=== PATIENT | female | born 1985 | race Caucasian/White ===

== ENCOUNTER 2023-12-05 15:27 | Emergency (ER) | payer OTHER, SELFPAY ==
[2023-12-05 15:34] VITALS: BP 157/95; PULSE 68; TEMP 36.9; O2SAT 99; BMI 28.4
--- NOTE | 2023-12-05 16:41 | ED_ITS ---
Documented by User: LINDA Tong 12/05/23 19:11 HPI HPI - Back Pain/Injury General Chief Complaint: Back Pain/Injury Stated Complaint: Back Pain Time Seen by Provider: 12/05/23 16:24 Source: patient Mode of arrival: walk-in Limitations: no limitations History of Present Illness HPI Narrative: 38-year-old female presents to the emergency department with complaint of upper back pain. Onset this past Sunday. Has been fairly constant. Patient states somewhat worsening and has not been able to sleep because of it. Has had some intermittent right arm weakness, none now. Has had neck, upper back problems in the past. History of degenerative disc disease. Denies any specific injury, sensory changes, paresthesias. Quality:?as above Severity:?Moderate Timing:?as above, constant, waxing and waning Context: Normal setting and activity? Modifying factors:?Pain worse with palpation Associated symptoms: As above Related Data Previous Rx's ?Medication ?Instructions ?Recorded cyclobenzaprine 5 mg tablet 5 - 10 mg (1 - 2 x 5 mg) PO .every 12/05/23 4-6 hours PRN muscle spasm #14 tabs oxycodone-acetaminophen 5 mg-325 1 tab PO Q8H PRN pain 3 days #8 12/05/23 mg tablet (Percocet) tabs prednisone 20 mg tablet 40 mg (2 x 20 mg) PO DAILY 5 days 12/05/23 #10 tabs Allergies Allergy/AdvReac Type Severity Reaction Status Date / Time No Known Drug Allergies Allergy Verified 12/05/23 15:33 Opioid HPI Opioid Management Most Recent Opioid Data: Last Pain Scale 6 12/05/23 19:07 Last ED Pain Assessment 12/05/23 19:07 Last MAR Pain Assessment 12/05/23 18:07 Review of Systems ROS Narrative CONST: Denies activity change, weakness MS: +back pain.? CHEST: Denies chest pain RESP: Denies dyspnea SKIN: Denies color change, wound NEURO: Denies numbness, paresthesias Exam Narrative Exam Narrative: Vital signs reviewed Nurses notes noted CONST: Nontoxic, well appearing, well nourished, in no distress.? No diaphoresis.?? HENT: normocephalic, atraumatic, moist mucous membrane, no abnormalities of the nose noted, hearing normal EYES: normal appearing conjunctiva, no apparent discharge bilat NECK: normal appearance CV: normal rate, regular rhythm, no murmur RESP: normal effort, speaking in complete sentences. Lung sounds clear and equal bilat.? No wheezes, rales, rhonchi MS: Patient complains of tenderness to the trapezius muscles on either side of her upper thoracic spine. She states some mild spinous process tenderness. No discoloration, crepitus, swelling, erythema. 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 Denies any tenderness over the cervical spinous process, paraspinal musculature, remainder of thoracic spine, LS spine. Patient displays steady gait. SKIN: no pallor NEURO: A&Ox 3, no focal findings. Motor and sensory intact. PSYCH: normal mood, affect Constitutional Vital Signs, click to edit/add: Last Vital Signs Temp 98.5 F 12/05/23 15:34 Pulse 57 L 12/05/23 19:07 Resp 16 12/05/23 19:07 BP 112/86 12/05/23 19:07 Pulse Ox 98 12/05/23 19:07 O2 Del Method Room Air 12/05/23 19:07 Course Reevaluation(s) Reevaluation #1: On reevaluation, patient states no change in pain after treatment. Will order some imaging, additional pain medicines Reevaluation #2: With patient and significant other results, plan, and disposition. They are agreeable with plan Vital Signs Vital signs: Vital Signs Temperature 98.5 F 12/05/23 15:34 Pulse Rate 68 12/05/23 15:34 Respiratory Rate 20 12/05/23 15:34 Blood Pressure 157/95 H 12/05/23 15:34 Pulse Oximetry 99 12/05/23 15:34 Oxygen Delivery Method Room Air 12/05/23 15:34 Temperature 98.5 F 12/05/23 15:34 Pulse Rate 57 L 12/05/23 19:07 Respiratory Rate 16 12/05/23 19:07 Blood Pressure 112/86 12/05/23 19:07 Pulse Oximetry 98 12/05/23 19:07 Oxygen Delivery Method Room Air 12/05/23 19:07 MDM - Back Pain/Injury MDM Narrative Medical decision making narrative: This is a pleasant 38-year-old female who presents to the emergency department complaint of upper back pain. Onset this past Sunday. Notes onset during the course of the day. History of degenerative disc disease. Has had some symptoms in her right arm, none at present. On arrival, afebrile, vital signs are stable. On exam, nontoxic, well-appearing patient in no distress. She has tenderness to the musculature of the trapezius on either side of her thoracic spine. She has some mild tenderness over the spinous process. She denies any appreciable tenderness of the spinous process, paraspinal musculature of the cervical spine. No tenderness of the mid, distal thoracic spine, lumbar sacral spines. She displays steady gait. 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 No sensory deficits present. Initially treated with pain medications and when no change in pain occurred, concern raised for something structural within the spine and CT was ordered. CT imaging, per radiologist reveals no acute process. Patient was given additional medications. Likely upper back pain, consider cervical plexus discomfort, musculoskeletal strain. Cord compression less likely based on stable neurologic evaluation. No deficits present Less likely fracture, dislocation based on imaging Disposition ? The patient was discharged. Plan: Patient will be discharged to home. Condition at time of disposition: stable She was given prescription for limited supply of Percocet, Flexeril, and prednisone. Advised to follow up with spine provider. Name and number placed on discharge paperwork. Advised to return for any worsening and/or development of new, concerning signs or symptoms PLEASE NOTE: Portions of the medical record may have been produced using electronic farm tractor operator and may contain errors with respect to translation of words which may not have been identified prior to finalization of the chart. Medical Records Attestation: I reviewed the patient's medical records. Lab Data Attestation: I reviewed the patient's lab results. Labs: Lab Results 12/05/23 Range/Units 16:20 Urine Color Yellow (YELLOW) Urine Clarity Clear (CLEAR) Urine pH 6.0 (5.0-9.0) Ur Specific [place] 1.025 (1.005-1.025) Urine Protein Negative (NEG/TRACE) mg/dL Urine Glucose (UA) Negative (NEGATIVE) mg/dL Urine Ketones Negative (NEGATIVE) mg/dL Urine Occult Blood Trace-i (NEGATIVE) Urine Nitrite Negative (NEGATIVE) Urine Bilirubin Negative (NEGATIVE) Urine Urobilinogen 0.2 (0.2-1.0) EU/dL Ur Leukocyte Esterase Negative (NEGATIVE) Urine RBC 0-2 (0-2) #/HPF Urine WBC None seen (NONE SEEN) #/HPF Ur Squamous Epith Cells Rare (NONE/RARE) #/LPF Urine Crystals None seen (None Seen) #/HPF Urine Bacteria Trace A (NONE SEEN) #/HPF Urine Casts None seen (NONE SEEN) #/LPF Urine Mucus None seen (NONE SEEN) Urine HCG, Qual Negative (NEGATIVE) Imaging Data CT Spine: Radiologist's impression: ITS Impressions Thoracic Spine CT 12/05/23 18:05 IMPRESSION: No acute abnormalities in the thoracic spine. Electronically authenticated by: KEITH PEDROZA Date: 12/05/2023 18:27 Discharge Plan Discharge Stand Alone Forms: Portal Instructions Chief Complaint: Back Pain/Injury Clinical Impression: Acute upper back pain Thoracic back pain Qualifiers: Chronicity: acute Back pain laterality: bilateral Qualified Code(s): M54.6 - Pain in thoracic spine Patient Disposition: Home, Self-Care Time of Disposition Decision: 19:01 Condition: Good Mode of Transportation: Private Vehicle Prescriptions / Home Meds: New oxycodone-acetaminophen [Percocet] 5-325 mg tablet 1 tab PO Q8H PRN (Reason: pain) 3 Days Qty: 8 0RF prednisone 20 mg tablet 40 mg PO DAILY 5 Days Qty: 10 0RF cyclobenzaprine 5 mg tablet 5 - 10 mg PO .every 4-6 hours PRN (Reason: muscle spasm) Qty: 14 0RF Print Language: [place] Instructions: Thoracic Pain (ED) Referrals: ALEXEY PRINCE [Physician] - 1 week Discharge Date/Time: 12/05/23 19:18 Documented by User: Oleksandr Franz MD 12/05/23 21:40 HPI HPI - Back Pain/Injury General Chief Complaint: Back Pain/Injury Stated Complaint: Back Pain Time Seen by Provider: 12/05/23 16:24 Related Data Previous Rx's ?Medication ?Instructions ?Recorded cyclobenzaprine 5 mg tablet 5 - 10 mg (1 - 2 x 5 mg) PO .every 12/05/23 4-6 hours PRN muscle spasm #14 tabs oxycodone-acetaminophen 5 mg-325 1 tab PO Q8H PRN pain 3 days #8 12/05/23 mg tablet (Percocet) tabs prednisone 20 mg tablet 40 mg (2 x 20 mg) PO DAILY 5 days 12/05/23 #10 tabs Allergies Allergy/AdvReac Type Severity Reaction Status Date / Time No Known Drug Allergies Allergy Verified 12/05/23 15:33 Opioid HPI Opioid Management Most Recent Opioid Data: Last Pain Scale 6 12/05/23 19:07 Last ED Pain Assessment 12/05/23 19:07 Last MAR Pain Assessment 12/05/23 18:07 Exam Constitutional Vital Signs, click to edit/add: Last Vital Signs Temp 98.5 F 12/05/23 15:34 Pulse 57 L 12/05/23 19:07 Resp 16 12/05/23 19:07 BP 112/86 12/05/23 19:07 Pulse Ox 98 12/05/23 19:07 O2 Del Method Room Air 12/05/23 19:07 Course Vital Signs Vital signs: Vital Signs Temperature 98.5 F 12/05/23 15:34 Pulse Rate 68 12/05/23 15:34 Respiratory Rate 20 12/05/23 15:34 Blood Pressure 157/95 H 12/05/23 15:34 Pulse Oximetry 99 12/05/23 15:34 Oxygen Delivery Method Room Air 12/05/23 15:34 Temperature 98.5 F 12/05/23 15:34 Pulse Rate 57 L 12/05/23 19:07 Respiratory Rate 16 12/05/23 19:07 Blood Pressure 112/86 12/05/23 19:07 Pulse Oximetry 98 12/05/23 19:07 Oxygen Delivery Method Room Air 12/05/23 19:07 MDM - Back Pain/Injury MDM Narrative Medical decision making narrative: This is a pleasant 38-year-old female who presents to the emergency department complaint of upper back pain. Onset this past Sunday. Notes onset during the course of the day. History of degenerative disc disease. Has had some symptoms in her right arm, none at present. On arrival, afebrile, vital signs are stable. On exam, nontoxic, well-appearing patient in no distress. She has tenderness to the musculature of the trapezius on either side of her thoracic spine. She has some mild tenderness over the spinous process. She denies any appreciable tenderness of the spinous process, paraspinal musculature of the cervical spine. No tenderness of the mid, distal thoracic spine, lumbar sacral spines. She displays steady gait. 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 No sensory deficits present. Initially treated with pain medications and when no change in pain occurred, concern raised for something structural within the spine and CT was ordered. CT imaging, per radiologist reveals no acute process. Patient was given additional medications. Likely upper back pain, consider cervical plexus discomfort, musculoskeletal strain. Cord compression less likely based on stable neurologic evaluation. No deficits present Less likely fracture, dislocation based on imaging Disposition ? The patient was discharged. Plan: Patient will be discharged to home. Condition at time of disposition: stable She was given prescription for limited supply of Percocet, Flexeril, and prednisone. Advised to follow up with spine provider. Name and number placed on discharge paperwork. Advised to return for any worsening and/or development of new, concerning signs or symptoms PLEASE NOTE: Portions of the medical record may have been produced using electronic farm tractor operator and may contain errors with respect to translation of words which may not have been identified prior to finalization of the chart. I, Dr Franz, have reviewed the above progress note and course of action in the ER; agree with the above. I have gone over history and physical, and discussed disposition and treatment plan with the patient. Lab Data Labs: Lab Results 12/05/23 Range/Units 16:20 Urine Color Yellow (YELLOW) Urine Clarity Clear (CLEAR) Urine pH 6.0 (5.0-9.0) Ur Specific [place] 1.025 (1.005-1.025) Urine Protein Negative (NEG/TRACE) mg/dL Urine Glucose (UA) Negative (NEGATIVE) mg/dL Urine Ketones Negative (NEGATIVE) mg/dL Urine Occult Blood Trace-i (NEGATIVE) Urine Nitrite Negative (NEGATIVE) Urine Bilirubin Negative (NEGATIVE) Urine Urobilinogen 0.2 (0.2-1.0) EU/dL Ur Leukocyte Esterase Negative (NEGATIVE) Urine RBC 0-2 (0-2) #/HPF Urine WBC None seen (NONE SEEN) #/HPF Ur Squamous Epith Cells Rare (NONE/RARE) #/LPF Urine Crystals None seen (None Seen) #/HPF Urine Bacteria Trace A (NONE SEEN) #/HPF Urine Casts None seen (NONE SEEN) #/LPF Urine Mucus None seen (NONE SEEN) Urine HCG, Qual Negative (NEGATIVE) Imaging Data CT Spine: Radiologist's impression: ITS Impressions Thoracic Spine CT 12/05/23 18:05
[2023-12-05] MEDS: TIZANIDINE HCL 4 MG TABLET PO (16:53)
[2023-12-05] MEDS: LIDOCAINE 5% PATCH 1 PATCH TOPICAL (16:53)
[2023-12-05] MEDS: TRIAMCINOLONE ACETONIDE 40 MG/ML VIAL IM (16:55)
[2023-12-05 16:58] LABS: Bilirubin Urine NEGATIVE (NEGATIVE); Blood Urine TRACE-I (NEGATIVE); Clarity Urine CLEAR (CLEAR); Color Urine YELLOW (YELLOW); Glucose Urine UA NEGATIVE (NEGATIVE); Ketones Urine NEGATIVE (NEGATIVE); Leukocyte Esterase Urine NEGATIVE (NEGATIVE); Nitrite Urine NEGATIVE (NEGATIVE); Protein Urine NEGATIVE (NEG/TRACE); Specific Gravity Urine 1.025 (1.005-1.025); Urobilinogen Urine 0.2 EU/dL (0.2-1.0)
[2023-12-05 17:00] LABS: HCG Qualitative Urine* NEGATIVE (NEGATIVE)
[2023-12-05 17:06] LABS: Bacteria Urine TRACE #/HPF (NONE SEEN); Cast Seen? NONE SEEN #/LPF (NONE SEEN); Crystals Seen? None Seen #/HPF (None Seen); Mucus Urine NONE SEEN (NONE SEEN); RBC Urine 0-2 #/HPF (0-2); Squamous Epithelial Cell Urine RARE #/LPF (NONE/RARE); WBC Urine NONE SEEN #/HPF (NONE SEEN)
--- NOTE | 2023-12-05 18:05 | CT_ITS ---
The [address] [address] Patient Name: HAILEY WILLIAM MRN: [id number] date: 1985 Sex: F Assigned Patient Location: ER Current Patient Location: ER Accession/Order Number: [id number] Exam Date: 12/05/2023 18:02 Report Date: 12/05/2023 18:27 At the request of: LIZBETH PARKS Procedure: CT thoracic spine wo con EXAM: CT scan of the thoracic spine with IV contrast. Dose reduction technique used: Automated exposure control and/or adjustment of the mA and/or kV according to patient size and/or use of iterative reconstruction technique. REASON FOR EXAM: EVALUATION OF C6-T5. Upper back pain COMPARISON: None FINDINGS: No fractures, dislocations or acute malalignment of the thoracic spine. Degenerative changes in the thoracic line without substantial spinal canal or neural foraminal stenoses. Preserved intervertebral disc heights. Remainder unremarkable. CT/CT thoracic spine wo con IMPRESSION: No acute abnormalities in the thoracic spine. Electronically authenticated by: KEITH PEDROZA Date: 12/05/2023 18:27
[2023-12-05] MEDS: HYDROCODONE/ACET 5-325 MG TABLET 1 TAB PO (18:07)
[2023-12-05 19:07] VITALS: BP 112/86; PULSE 57; O2SAT 98
== END 2023-12-05 19:18 | disposition home or self-care (01) ==
PROVIDERS: Emergency Provider Emergency Medicine
DX: M54.6 Pain in thoracic spine (principal)
CPT/HCPCS: 72128; 81001; 84703; 96372; 99285